=== PATIENT | male | born 1975 | race American Indian/Alaskan Native ===

== ENCOUNTER → 2024-06-04 | Outpatient (CLI) | payer MEDICARE, SELFPAY | END | disposition home or self-care (01) | PROVIDERS: PCP Internal Medicine; Referring Provider Internal Medicine; Visit Provider Surgery | DX: L02.31 Cutaneous abscess of buttock (principal); L02.214 Cutaneous abscess of groin; E11.69 Type 2 diabetes mellitus with other specified complication; I12.0 Hypertensive chronic kidney disease with stage 5 chronic kidney disease or end stage renal disease; M19.90 Unspecified osteoarthritis, unspecified site; N18.6 End stage renal disease; E11.21 Type 2 diabetes mellitus with diabetic nephropathy; Z87.898 Personal history of other specified conditions; N49.2 Inflammatory disorders of scrotum | CPT/HCPCS: 99213; G0463 ==

== ENCOUNTER → 2024-06-08 | Outpatient (CLI) | payer MEDICARE, MEDICAID, SELFPAY ==
--- NOTE | 2024-06-08 11:09 | EKG_ITS ---
[facility] Test Date: 2024-06-08 Pat Name: JOSEPH CALHOUN Department: Room: - Gender: Male Rehabilitation Physician: STUDENT : [id number] Requested By: Mumtaz Barraza Order Number: [id number] Reading MD: Mumtaz Barraza Measurements Intervals [place] Rate: 83 P: 33 AL: 149 QRS: 16 QRSD: 136 T: 20 QT: 403 QTc: 475 Interpretive Statements SINUS RHYTHM RIGHT BUNDLE BRANCH BLOCK No previous ECG available for comparison /store/S0/[id number]/ecg/[id number].pdf
[2024-06-08 12:36] LABS: Glucose,Fasting 109 mg/dL (74-106)
== END | disposition home or self-care (01) ==
PROVIDERS: PCP Physician Assistant; Referring Provider Physician Assistant; Visit Provider Physician Assistant
DX: Z01.818 Encounter for other preprocedural examination (principal)
CPT/HCPCS: 36415; 82947; 93005

== ENCOUNTER → 2024-11-06 | Outpatient (CLI) | payer MEDICARE, MEDICAID, SELFPAY | END | disposition home or self-care (01) | PROVIDERS: PCP Internal Medicine; Referring Provider Internal Medicine; Visit Provider Surgery | DX: L02.214 Cutaneous abscess of groin (principal); L02.31 Cutaneous abscess of buttock; E11.69 Type 2 diabetes mellitus with other specified complication; I10 Essential (primary) hypertension | CPT/HCPCS: 10060; 87070; 87075; 87077; 87186; 87205; J3490; A9270 ==

== ENCOUNTER → 2024-11-13 | Outpatient (CLI) | payer MEDICARE, MEDICAID, SELFPAY | END | disposition home or self-care (01) | LOC: SWHD 14:28 | PROVIDERS: PCP Internal Medicine; Referring Provider Internal Medicine; Visit Provider Surgery | DX: L02.214 Cutaneous abscess of groin (principal); L02.31 Cutaneous abscess of buttock; E11.69 Type 2 diabetes mellitus with other specified complication; I10 Essential (primary) hypertension | CPT/HCPCS: 99215; A9270; G0463 ==

== ENCOUNTER → 2024-11-25 | Outpatient (CLI) | payer MEDICARE, MEDICAID, SELFPAY | END | disposition home or self-care (01) | LOC: SWHD 14:43 | PROVIDERS: PCP Internal Medicine; Referring Provider Internal Medicine; Visit Provider Student in an Organized Health Care Education/Training Program | DX: L02.214 Cutaneous abscess of groin (principal); L02.31 Cutaneous abscess of buttock; E11.69 Type 2 diabetes mellitus with other specified complication; I10 Essential (primary) hypertension | CPT/HCPCS: 99214; A9270; G0463 ==

== ENCOUNTER → 2025-03-17 | Outpatient (CLI) | payer MEDICARE, MEDICAID, SELFPAY | END | disposition home or self-care (01) | PROVIDERS: PCP Internal Medicine; Referring Provider Internal Medicine; Visit Provider Student in an Organized Health Care Education/Training Program | DX: L02.214 Cutaneous abscess of groin (principal); L02.31 Cutaneous abscess of buttock; E11.69 Type 2 diabetes mellitus with other specified complication; I10 Essential (primary) hypertension | CPT/HCPCS: 10060; J3490; A9270 ==

== ENCOUNTER → 2025-03-18 | Outpatient (CLI) | payer MEDICARE, MEDICAID, SELFPAY | END | disposition home or self-care (01) | PROVIDERS: Referring Provider Student in an Organized Health Care Education/Training Program; Visit Provider Student in an Organized Health Care Education/Training Program | DX: L02.212 Cutaneous abscess of back [any part, except buttock and flank] (principal); L02.838 Carbuncle of other sites; E11.622 Type 2 diabetes mellitus with other skin ulcer | CPT/HCPCS: 87070; 87075; 87077; 87186; 87205 ==

== ENCOUNTER 2025-05-01 14:53 | Emergency (ER) | payer MEDICARE, MEDICAID, SELFPAY ==
[2025-05-01 15:21] VITALS: BP 161/81; PULSE 97; RESP 20; TEMP 36.9; O2SAT 95
[2025-05-01] MEDS: CIPROFLOXACIN HCL 250 MG TABLET 500 MG PO (16:36)
[2025-05-01] MEDS: DIPHTH,PERTUSS(ACELL),TET VAC 0.5 ML SYR- ADULT IMi (16:37)
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
== END 2025-05-01 16:51 | disposition home or self-care (01) ==
LOC: SERX 16:17
PROVIDERS: Emergency Provider Emergency Medicine; PCP Physician Assistant
DX: T25.221A Burn of second degree of right foot, initial encounter (principal); T31.0 Burns involving less than 10% of body surface; E11.22 Type 2 diabetes mellitus with diabetic chronic kidney disease; E11.42 Type 2 diabetes mellitus with diabetic polyneuropathy; N18.6 End stage renal disease; W29.2XXA Contact with other powered household machinery, initial encounter; Y93.84 Activity, sleeping; Z23 Encounter for immunization; Z28.39 Other underimmunization status; Z99.2 Dependence on renal dialysis
CPT/HCPCS: 90471; 90715; 99281; A9270

== ENCOUNTER → 2025-05-07 | Outpatient (CLI) | payer MEDICARE, MEDICAID, SELFPAY | END | disposition home or self-care (01) | LOC: SWHD 13:22 | PROVIDERS: PCP Internal Medicine; Referring Provider Internal Medicine; Visit Provider Student in an Organized Health Care Education/Training Program | DX: T25.321A Burn of third degree of right foot, initial encounter (principal); L02.415 Cutaneous abscess of right lower limb; I10 Essential (primary) hypertension; E11.69 Type 2 diabetes mellitus with other specified complication | CPT/HCPCS: 97597; 87070; 87075; 87205; J3490; A9270 ==

== ENCOUNTER → 2025-05-14 | Outpatient (CLI) | payer MEDICARE, MEDICAID, SELFPAY | END | disposition home or self-care (01) | LOC: SWHD 13:37 | PROVIDERS: PCP Internal Medicine; Referring Provider Internal Medicine; Visit Provider Surgery | DX: T25.321A Burn of third degree of right foot, initial encounter (principal); L02.415 Cutaneous abscess of right lower limb; I10 Essential (primary) hypertension; E11.69 Type 2 diabetes mellitus with other specified complication | CPT/HCPCS: 99212; A9270; G0463 ==

== ENCOUNTER → 2025-05-21 | Outpatient (CLI) | payer MEDICARE, MEDICAID, SELFPAY | END | disposition home or self-care (01) | LOC: SWHD 15:00 | PROVIDERS: PCP Internal Medicine; Referring Provider Internal Medicine; Visit Provider Surgery | DX: T25.321A Burn of third degree of right foot, initial encounter (principal); L02.415 Cutaneous abscess of right lower limb; I10 Essential (primary) hypertension; E11.69 Type 2 diabetes mellitus with other specified complication | CPT/HCPCS: 16025; A9270 ==